=== PATIENT | male | born 1990 | race Caucasian/White ===

== ENCOUNTER 2019-04-13 16:50 | Emergency (ER) | payer MEDICAID ==
--- NOTE | 2019-04-13 17:02 | EDPHY ---
H & P Time Seen by Provider: 04/13/19 16:57 HPI/ROS: CHIEF COMPLAINT: Acute agitation and psychosis HISTORY OF PRESENT ILLNESS: 28-year-old male arrives via ambulance from [facility] after exhibiting acute agitation and psychosis. EMS reports that the patient was observed banging his head on the floor and was agitated, yelling. He subsequently given intramuscular Haldol and Benadryl by [facility] staff and subsequently calmed and route. No further pharmacologic intervention via EMS. Patient no complaints of pain or discomfort. Denies suicidal or homicidal ideation. Patient has no complaints of pain or discomfort. Interviewing the patient's old medical records, most recent emergency department visit [facility] 2 days ago the patient was evaluated for altered mental status head admitted to smoking methamphetamine cocaine marijuana and overdosed on cough medicine. CT imaging the head performed that time was negative for posttraumatic sequelae and patient was eventually transferred to [facility]. M1 hold dated 04/12/2019 at 3:00 p.m. "Patient states he drank 'a bunch of cough syrup' earlier today to try to kill himself. Was arrested earlier for shoplifting." REVIEW OF SYSTEMS: 10 systems reviewed and negative with the exception of the elements mentioned in the history of present illness PAST MEDICAL & SURGICAL HISTORY: currently hospitalized for suicidal ideation. SOCIAL HISTORY: Interviewing the patient's old medical records reports of polysubstance abuse PHYSICAL EXAM (Prior to examination, patient consented to physical exam, hands were washed and my usual and customary physical exam procedures followed) 1) GENERAL: Initially presents in 4 point restraints spit don in place which chart taken down and patient is able to calmly transfer to the bed and calmly allows me to examine him. Well-developed, well-nourished, alert and oriented. Appears to be in no acute distress. 2) HEAD: Normocephalic, atraumatic 3) HEENT: Pupils equal, round, reactive to light bilaterally. Sclera anicteric. Nasopharynx, oropharynx, clear, no lesions. MoistDry mucous membranes. Ears bilaterally with normal tympanic membranes. 4) NECK: Full range of motion, no meningeal signs. 5) LUNGS: Clear auscultation bilaterally, no wheezes, no rhonchi, no retractions. 6) HEART: Regular rate and rhythm, no murmur, no heave, no gallop. 7) ABDOMEN: No guarding, no rebound, no focal tenderness, negative McBurney's, negative Perkins's, negative Rovsing's, negative peritoneal sign, 8) MUSCULOSKELETAL: Moving all extremities, no focal areas of tenderness, no obvious trauma. No peripheral edema or discoloration. 9) BACK: No CVA tenderness, no midline vertebral tenderness, no fluctuance, no step-off, no obvious trauma, no visual or palpable abnormality. 10) SKIN: No rash, no petechiae. 11) Psychiatric: Patient is oriented X 3, there is no agitation. DIFFERENTIAL DIAGNOSIS: In no particular order including but not limited to suicidal ideation, homicidal ideation, polysubstance abuse, psychosis (Latisha Emmanuel Sonal) Constitutional: Initial Vital Signs Temperature (C) 36.9 C 04/13/19 16:57 Heart Rate 100 04/13/19 16:57 Respiratory Rate 18 04/13/19 16:57 Blood Pressure 129/78 H 04/13/19 16:57 O2 Sat (%) 97 04/13/19 16:57 O2 Delivery Mode Room Air Allergies/Adverse Reactions: No Known Allergies Allergy (Unverified 04/13/19 16:55) Home Medications: Medication Instructions Recorded NK [No Known Home Meds] 04/13/19 Medical Decision Making - Diagnostics Imaging Results: Imaging Impressions Head CT 04/13/19 17:42 Impression: 1. There is no acute intracranial abnormality identified on this unenhanced CT evaluation. 2. Chronic jewell-paranasal sinusitis, with the greatest degree of involvement in the left maxillary sinus. If there is further clinical concern regarding the patient's symptoms, MR imaging is suggested, if not otherwise contraindicated. Findings were discussed with Celio Khan MD at 18:02, on 04/13/2019. ED Course/Re-evaluation: 5:00 p.m.: Care turned over to Dr. Celio Khan. Laboratory studies pending , mental health evaluation pending. I reviewed the patient's old medical records. Care of patient under supervision of secondary supervising physician Dr Celio Khan with whom I discussed case. (Latisha Emmanuel Sonal) I was notified by the mental health specialist that the M1 hold the patient arrived on has been filled out incorrectly and is not legally valid. The patient is currently sedated from medications given prior to arrival, so to bridge the gap, I have placed the patient on an Medical Incapacity Hold for the time being. [facility] has contacted the sending facility regarding the hold and plans on writing a new M1 hold. CTH read by Dr. Bernal as negative for acute process. (Celio Khan) Other Provider: Patient medically clear as of 1999. I reviewed patient's recent ED results including CT, lab work and ED note. It sounds like patient was ultimately transferred to us today from [facility], bypassing an ED across the street , secondary to a seizure which is a different story than we got on arrival. On re-evaluation, patient is sleeping comfortably, easily arousable. His labs today are significant only for a leukocytosis. The patient had an elevated WBC prior to admission, and in setting of recent severe agitation requiring sedation , I think his mild rise in WBC is likely secondary to this stress. He is afebrile here and a review of [facility] indicates that he is an extremely high utilizer of local EDs with extensive recent negative workups. Patient has been accepted for return to [facility]. I have filled out [facility] paperwork. (Celio Khan) - Data Points Laboratory Results: Laboratory Results 04/13/19 16:55 04/13/19 16:55 04/13/19 04/13/19 04/13/19 17:55 16:55 16:55 WBC 20.35 10^3/uL H 10^3/uL (3.80-9.50) RBC 5.77 10^6/uL 10^6/uL (4.40-6.38) Hgb 18.5 g/dL H g/dL (13.7-17.5) Hct 56.3 % H % (40.0-51.0) MCV 97.6 fL fL (81.5-99.8) MCH 32.1 pg pg (27.9-34.1) MCHC 32.9 g/dL g/dL (32.4-36.7) RDW 14.4 % % (11.5-15.2) Plt Count 395 10^3/uL 10^3/uL (150-400) MPV 10.3 fL fL (8.7-11.7) Neut % (Auto) 55.2 % % (39.3-74.2) Lymph % (Auto) 31.4 % % (15.0-45.0) Greene % (Auto) 8.9 % % (4.5-13.0) Eos % (Auto) 3.3 % % (0.6-7.6) Baso % (Auto) 0.9 % % (0.3-1.7) Nucleat RBC Rel Count 0.0 % % (0.0-0.2) Absolute Neuts (auto) 11.23 10^3/uL H 10^3/uL (1.70-6.50) Absolute Lymphs (auto) 6.39 10^3/uL H 10^3/uL (1.00-3.00) Absolute Monos (auto) 1.81 10^3/uL H 10^3/uL (0.30-0.80) Absolute Eos (auto) 0.67 10^3/uL H 10^3/uL (0.03-0.40) Absolute Basos (auto) 0.18 10^3/uL H 10^3/uL (0.02-0.10) Absolute Nucleated RBC 0.00 10^3/uL 10^3/uL (0-0.01) Immature Gran % 0.3 % % (0.0-1.1) Immature Gran # 0.06 10^3/uL 10^3/uL (0.00-0.10) RBC/WBC/PLT Morphology TNP Platelet Estimate TNP Sodium 147 mEq/L H mEq/L (135-145) Potassium 4.6 mEq/L mEq/L (3.5-5.2) Chloride 107 mEq/L mEq/L (97-110) Carbon Dioxide 16 mEq/l L mEq/l (22-31) Anion Gap 24 mEq/L H mEq/L (6-14) BUN 11 mg/dL mg/dL (7-23) Creatinine 1.1 mg/dL mg/dL (0.7-1.3) Estimated GFR > 60 Glucose 75 mg/dL mg/dL (70-100) Calcium 10.7 mg/dL H mg/dL (8.5-10.4) Phosphorus 6.8 mg/dL H mg/dL (2.5-4.5) Creatine Kinase 341 IU/L H IU/L (0-224) CK-MB (CK-2) Fraction 3.73 ng/mL ng/mL (0.00-4.55) CK-MB (CK-2) % 1.1 % % (0.0-4.0) Creatine Kinase Interp NEGATIVE (NEGATIVE) Salicylates < 1.0 mg/dL L mg/dL (2.0-20.0) Urine Opiates Screen NEGATIVE (NEGATIVE) Acetaminophen < 10 mcg/mL L mcg/mL (10-30) Urine Barbiturates NEGATIVE (NEGATIVE) Ur Phencyclidine Scrn NEGATIVE (NEGATIVE) Ur Amphetamine Screen NEGATIVE (NEGATIVE) U Benzodiazepines Scrn NON-NEGATIVE H (NEGATIVE) Urine Cocaine Screen NEGATIVE (NEGATIVE) U Marijuana (THC) Screen NEGATIVE (NEGATIVE) Ethyl Alcohol < 10 mg/dL mg/dL (0-10) Medications Given: Discontinued Medications Sodium Chloride (Ns) 1,000 mls @ 0 mls/hr IV EDNOW ONE; Wide Open PRN Reason: Protocol Stop: 04/13/19 18:04 Last Admin: 04/13/19 18:08 Dose: 1,000 mls Departure - Departure Disposition: Other Psych, Not Ruth Clinical Impression: Acute psychosis Condition: Good Referrals: JOHN BOONE [Other] - As per Instructions
[2019-04-13 17:20] LABS: CREATINE KINASE 341 IU/L (0-224)
[2019-04-13 17:26] LABS: PLATELET COUNT 395 10^3/uL (150-400)
[2019-04-13] MEDS ORDERED: NS 1,000 ML IV ONE (18:03)
[2019-04-13 22:34] VITALS: BP 116/69
== END 2019-04-13 22:34 ==
DX: F29 Unspecified psychosis not due to a substance or known physiological condition (principal); E86.9 Volume depletion, unspecified
CPT/HCPCS: 80305; G0480